=== PATIENT | male | born 1975 | race Caucasian/White ===

== ENCOUNTER 2023-09-29 06:41 | Outpatient (CLI) | payer OTHER, SELFPAY ==
[2023-09-29 07:11] VITALS: BP 147/90; PULSE 72; RESP 16; TEMP 36.7; O2SAT 100
[2023-09-29 08:06] VITALS: BP 114/71
== END 2023-09-29 08:14 | disposition home or self-care (01) ==
LOC: US 06:44 → OP CLINIC 06:47
PROVIDERS: PCP Family Medicine; Visit Provider Family Medicine
DX: M77.11 Lateral epicondylitis, right elbow (principal); M70.831 Other soft tissue disorders related to use, overuse and pressure, right forearm
CPT/HCPCS: 24357; 28060; 76942; J0665